=== PATIENT | female | born 1965 | race Caucasian/White ===

== ENCOUNTER 2017-09-17 11:37 | Emergency (ER) | payer SELFPAY ==
[2017-09-17 11:46] VITALS: BP 113/67; PULSE 67; TEMP 97.7; BMI 34.3
--- NOTE | 2017-09-17 12:27 | PDOC ---
History of Present Illness - General Chief Complaint: Pain Stated Complaint: LT ARM PAIN Time Seen by Provider: 09/17/17 12:16 History Source: Patient - History of Present Illness Initial Comments: Chief complaint: Shoulder pain Patient 52-year-old female with a of slight asthma, diabetes as well controlled with pills as per patient she checks her blood sugars and states they don't go high who has had left shoulder pain for almost 2 weeks. Patient states she had a shoulder injury a year ago but did not have any problems and did not need to see an orthopedist. Patient cleans for living and is complaining of left shoulder pain when she moves it especially when she places it all the way behind her back. No numbness or tingling, no fever, no chest pain, shortness of breath or any other concerning symptoms. Patient is moving arm without any difficulty. She can show me the positions that cause her pain. She took 2 Advil yesterday which seemed to help a little bit. GENERAL/CONSTITUTIONAL: No fever, weakness. dizziness HEAD, EYES, EARS, NOSE AND THROAT: No change in vision. No ear pain or discharge. No sore throat. CARDIOVASCULAR: No chest pain RESPIRATORY: No shortness of breath or cough GASTROINTESTINAL: No pain, nausea, vomiting, diarrhea or constipation GENITOURINARY: No dysuria MUSCULOSKELETAL: No neck or back pain, + left shoulder SKIN: No rash NEUROLOGIC: No headache, vertigo, loss of consciousness, or loss of sensation. GENERAL: The patient is awake, alert, and fully oriented, in no acute distress. HEAD: Normal with no signs of trauma. EYES: Pupils equal, round and reactive to light, sclera anicteric, conjunctiva clear. ENT: pharynx: no erythema, no exudate, uvula midline NECK: supple CHEST: clear, nontender, rr ABD: soft, nontender EXTREMITIES: + Left or tenderness, especially in the posterior aspect, no deformity or signs of infection, patient has normal range of motion although she has discomfort when putting it all the way forward or placing it all the way behind her back or wheezing at all the way up, neurovascular is intact. Other extremities, normal range of motion, no edema. NEUROLOGICAL: Normal speech, normal gait. SKIN: Warm, Dry 09/17/17 13:43 Past History - Past Medical History Allergies/Adverse Reactions: Allergies Allergy/AdvReac Type Severity Reaction Status Date / Time No Known Allergies Allergy Verified 09/17/17 11:46 Home Medications: Ambulatory Orders Meloxicam [Mobic] 15 mg PO DAILY #10 tablet 09/17/17 COPD: No Diabetes: Yes - Suicide/Smoking/Psychosocial Hx Smoking History: Never smoked Information on smoking cessation initiated: No Hx Alcohol Use: No Drug/Substance Use Hx: No *Physical Exam - Vital Signs Last Vital Signs Temp Pulse Resp BP Pulse Ox 97.7 F 67 20 113/67 99 09/17/17 11:41 09/17/17 11:41 09/17/17 11:41 09/17/17 11:41 09/17/17 11:41 Medical Decision Making - Medical Decision Making 52-year-old female with history of mild asthma well-controlled diabetes with obvious left shoulder musculoskeletal pain. No indication for imaging or further workup. Patient will be placed on meloxicam for one week, will follow- up with her doctor and was given [facility] referral for possible PT. 09/17/17 13:47 *DC/Admit/Observation/Transfer Diagnosis at time of Disposition: Shoulder pain, left Qualifiers: Chronicity: unspecified Qualified Code(s): M25.512 - Pain in left shoulder - Discharge Dispostion Disposition: HOME Condition at time of disposition: Stable - Prescriptions Prescriptions: Meloxicam [Mobic] 15 mg PO DAILY #10 tablet - Referrals Referrals: Eligio Woody [Primary Care Provider] - Jay Castanon MD [Staff Physician] - - Patient Instructions Printed Discharge Instructions: DI for Shoulder Pain Additional Instructions: Elevate, wear splint You can apply ice for 20 minutes every 2 hours for the next 2 days mobic 15 mg once fermin for pain. Call the orthopedist tomorrow - Post Discharge Activity
== END 2017-09-17 12:46 | disposition home or self-care (01) ==
LOC: JERFT 11:37
DX: M25.512 Pain in left shoulder (principal); E11.9 Type 2 diabetes mellitus without complications; Z79.84 Long term (current) use of oral hypoglycemic drugs
CPT/HCPCS: 99281-25

== ENCOUNTER 2022-03-08 19:09 | Emergency (ER) | payer OTHER ==
[2022-03-08 19:27] VITALS: BP 114/68; PULSE 78; TEMP 98.6; BMI 30.4
[2022-03-08] MEDS ORDERED: DEXAMETHASONE SOD PHOSPHATE 4 MG/1 ML VIAL IVPUSH ONE (22:02)
[2022-03-08] MEDS ORDERED: ALBUTEROL SO4 2.5/IPRATROPIUM 0.5 INH SOL 3 ML VIAL.NEB. NEB ONE (22:13)
[2022-03-08] MEDS ORDERED: DEXAMETHASONE SOD PHOSPHATE 10 MG/1 ML VIAL ONE (22:13)
[2022-03-08 22:17] LABS: HEMATOCRIT 37.6 % (32.4-45.2); MCH 30.9 pg (25.7-33.7); MCHC 34.5 g/dl (32.0-36.0); MEAN CELL VOLUME 89.6 fl (80-96); MEAN PLT VOLUME 6.8 fl (7.5-11.1); PLATELET COUNT 207 10^3/uL (134-434); RBC 4.19 M/mm3 (3.60-5.2); RDW 13.8 % (11.6-15.6); WHITE BLOOD COUNT 4.4 K/mm3 (4.0-10.0)
[2022-03-08] MEDS: ALBUTEROL SO4 2.5/IPRATROPIUM 0.5 INH SOL 3 ML VIAL.NEB. NEB SCH ×4 (22:18→23:25)
[2022-03-08 22:38] LABS: ALBUMIN 3.8 g/dl (3.4-5.0); BLOOD UREA NITROGEN 23.4 mg/dL (7-18); MAGNESIUM 2.3 mg/dL (1.8-2.4)
[2022-03-08 22:41] LABS: CREATININE 0.6 mg/dL (0.55-1.3)
[2022-03-08 22:42] LABS: BILIRUBIN,TOTAL 0.2 mg/dL (0.2-1)
[2022-03-08 22:43] LABS: TOT PROT 7.1 g/dl (6.4-8.2)
[2022-03-08 23:03] LABS: ANISOCYTOSIS 0; HELMET CELLS 0; HOWELL-JOLLY BODIES 0; MACROCYTOSIS 0; OVALOCYTE 0; ROULEAU 0; SICKELED CELLS 0; TARGET CELLS 0; TEAR DROP CELLS 0; TOXIC GRANULATION 0
[2022-03-09] MEDS ORDERED: ALBUTEROL SO4 HFA INHALER IH ONE ×2 (00:28→00:29)
== END 2022-03-09 01:30 ==
LOC: JER 19:09
PROC: 3E0F7GC Introduction of Other Therapeutic Substance into Respiratory Tract, Via Natural or Artificial Opening (ICD-10-PCS; principal; 2022-03-08)
PROC: 3E033NZ Introduction of Analgesics, Hypnotics, Sedatives into Peripheral Vein, Percutaneous Approach (ICD-10-PCS; 2022-03-08)
DX: J45.901 Unspecified asthma with (acute) exacerbation (principal)
CPT/HCPCS: 0241U-QW; 36415; 71046-TC-FY; 80053; 83735; 84484; 85025; 93005; 93010; 99285-25